=== PATIENT | male | born 1965 | race Caucasian/White ===

== ENCOUNTER 2016-06-05 10:34 | Day surgery (SDC) | payer OTHER ==
[~2016-06-05 10:34] MED LIST: LIDOCAINE W/ SODIUM BICARB 0.5 ML SYR ONE; Lactated Ringers 1,000 ML PRIMARY IV ONE
--- NOTE | 2016-06-05 12:22 | GEN.OPNOTE ---
Colonoscopy Procedure Note Surgery Date: 06/05/16 Preoperative Diagnosis: Colon cancer screening. Postoperative Diagnosis: Colon cancer screening. Procedure: Complete colonoscopy. Surgeon: Abelino Ridley MD Anesthesia Provider: Geovanna Dukes CRNA Anesthesia Type: MAC Indications: Colon cancer screening for colon cancer prevention and/or early detection. Findings: Prep : [Good] Cecum : [Normal] Ascending : [Normal] Transverse : [Normal] Sigmoid : [Normal] Rectum : [Normal] Digital Rectal Exam : [Normal. Prostate of normal size and consistency.] A lubricated flexible colonoscope was inserted and passed to the blind end of the cecum. The appendiceal orifice, blind end of the cecum and ileocecal valve were all clearly seen. There is a thin layer of liquid stool in the colon but I could see through it very well. It was cleared as much as possible.. The entire colonoscopy was normal without polyp, tumor, neoplastic mass, infectious or inflammatory process. It was aspirated as the scope was withdrawn. The scope was withdrawn completing the procedure. Patient tolerated the procedure well without complication. He was taken to outpatient surgery in stable condition. Follow-up will be with my office on an as-needed basis. It is recommended he undergo follow-up colonoscopy in 10 years.
[2016-06-05 13:15] VITALS: RESP 16
[2016-06-05 13:16] VITALS: TEMP 97.8
== END 2016-06-05 12:37 | disposition home or self-care (01) ==
LOC: SDSC 10:34
PROVIDERS: ATTEND Surgery
DX: Z12.11 Encounter for screening for malignant neoplasm of colon (principal)
CPT/HCPCS: 45378; J2704; J7120